=== PATIENT | female | born 1995 | race Caucasian/White ===

== ENCOUNTER 2018-03-05 22:13 | Emergency (ER) | payer OTHER ==
[~2018-03-05] VITALS: Ht 157.5 cm; Wt 84.4 kg
[2018-03-05] MEDS ORDERED: ZITHROMAX500 MG (22:19)
[2018-03-05] MEDS ORDERED: MUCUS ER1200 MG (22:20)
[2018-03-05] MEDS ORDERED: PRENATABS FA T1 EACH (22:20)
[2018-03-05] MEDS ORDERED: MUCINEX D ER T1 EACH (22:20)
[2018-03-06] MEDS ORDERED: TESSALON PERLE100 MG PO (02:37)
[2018-03-06] MEDS ORDERED: BUDESONIDE0.5 MG/2 M IH (02:37)
[2018-03-06] MEDS ORDERED: PROMETHAZINE D118 ML PO (02:37)
[2018-03-06] MEDS ORDERED: ALBUTEROL1.25 MG/3 IH (02:37)
[2018-03-06] MEDS ORDERED: IPRAT-ALBUT 0.5-3 ML IH (02:47)
[2018-03-06] MEDS ORDERED: IPRATROPIU0.2 MG/1 M IH (02:49)
== END 2018-03-06 03:00 | disposition home or self-care (01) ==
LOC: ER 22:13 → EDBD 22:29 → ER 22:29
DX: J06.9 Acute upper respiratory infection, unspecified (principal); R11.11 Vomiting without nausea

== ENCOUNTER 2018-07-22 07:26 | Inpatient (IN) | payer OTHER ==
[~2018-07-22] VITALS: Ht 157.5 cm; Wt 90.7 kg
[~2018-07-22 07:26] MED LIST: ALBUTEROL1.25 MG/3 IH; BUDESONIDE0.5 MG/2 M IH; IPRAT-ALBUT 0.5-3 ML IH; IPRATROPIU0.2 MG/1 M IH; MUCINEX D ER T1 EACH; MUCUS ER1200 MG; PRENATABS FA T1 EACH; PROMETHAZINE D118 ML PO; TESSALON PERLE100 MG PO; ZITHROMAX500 MG
[2018-07-24] MEDS ORDERED: DOCUSATE SODIU100 MG PO (08:32)
== END 2018-07-24 12:51 | DRG 768 ==
LOC: LDR 07:26 → OB/GYN 07:26
PROVIDERS: ADMIT Obstetrics & Gynecology
PROC: 10E0XZZ Delivery of Products of Conception, External Approach (ICD-10-PCS; principal; 2018-07-22)
PROC: 0DQR0ZZ Repair Anal Sphincter, Open Approach (ICD-10-PCS; 2018-07-22)
PROC: 4A1HXCZ Monitoring of Products of Conception, Cardiac Rate, External Approach (ICD-10-PCS; 2018-07-22)
PROC: 4A033R1 Measurement of Arterial Saturation, Peripheral, Percutaneous Approach (ICD-10-PCS; 2018-07-22)
DX: O70.21 Third degree perineal laceration during delivery, IIIa (principal); Z37.0 Single live birth; Z3A.39 39 weeks gestation of pregnancy